=== PATIENT | female | born 1940 | race Caucasian/White ===

== ENCOUNTER 2023-04-12 14:13 | Emergency (ER) | payer MEDICARE, OTHER ==
[~2023-04-12] VITALS: Ht 170.2 cm; Wt 71.2 kg
[~2023-04-12 14:13] MED LIST: ASPI-920 PO; CELE-193 PO; CITA20TA28 PO; CLOP75TA34 PO; CYCL15CA PO; LOP25T PO; OXYC-658 PO; RANI300T7 PO; ROSU40TA PO
[2023-04-12 14:24] VITALS: BP 122/74; PULSE 63; RESP 18; TEMP 98.3; O2SAT 97
[2023-04-12 14:28] LABS: BASOPHILS # (AUTO) 0.1 X10'3 (0-0.2); BASOPHILS % (AUTO) 1.5 % (0-1); EOSINOPHILS # (AUTO) 0.2 X10'3 (0-0.9); EOSINOPHILS % (AUTO) 3.1 % (0-6); HEMATOCRIT 38.9 % (35.0-45.0); HEMOGLOBIN 12.8 g/dl (12.0-16.0); LYMPHOCYTES # (AUTO) 1.7 X10'3 (1.1-4.8); LYMPHOCYTES % (AUTO) 32.4 % (21-51); MEAN CORPUSCULAR HEMOGLOBIN 28.7 PG (27.0-31.0); MEAN CORPUSCULAR VOLUME 87.1 FL (78-98); MEAN PLATELET VOLUME 7.5 FL (7.4-10.4); MONOCYTES # (AUTO) 0.5 X10'3 (0-0.9); MONOCYTES % (AUTO) 9.6 % (2-12); NEUTROPHILS # (AUTO) 2.8 X10'3 (1.8-7.7); NEUTROPHILS % (AUTO) 53.4 % (42-75); PLATELET COUNT 181 X10'3 (140-440); RED BLOOD COUNT 4.46 X10'6 (4.20-5.60); RED CELL DISTRIBUTION WIDTH 16.1 % (11.5-14.5); WHITE BLOOD COUNT 5.3 X10'3 (4.5-11.0)
[2023-04-12 14:49] LABS: ALANINE AMINOTRANSFERASE 26 U/L (12-78); ALBUMIN 3.8 G/DL (3.4-5.0); ALBUMIN/GLOBULIN RATIO 1.2 (1.1-1.5); ALKALINE PHOSPHATASE 71 IU/L (46-116); ANION GAP 11 (8-16); ASPARTATE AMINO TRANSFERASE 21 U/L (10-37); BILIRUBIN,TOTAL 0.4 MG/DL (0.1-1.0); BLOOD UREA NITROGEN 24 MG/DL (7-18); BUN/CREATININE RATIO 22.2 (10.0-20.0); CALCIUM 9.3 MG/DL (8.5-10.1); CHLORIDE 105 MMOL/L (99-107); CREATININE 1.08 MG/DL (0.40-0.90); GLUCOSE 109 MG/DL (70-104); POTASSIUM 4.2 MMOL/L (3.5-5.1); SODIUM 138 MMOL/L (135-145); TOTAL PROTEIN 6.9 G/DL (6.4-8.2); eGFR 48 ML/MIN
[2023-04-12 14:59] LABS: CLARITY,URINE CLOUDY (Clear); COLOR,URINE YELLOW (Yellow); GLUCOSE, URINE NEGATIVE (Neg); KETONES,URINE NEGATIVE (Neg); LEUKOCYTE ESTERASE ,URINE SMALL (Neg); NITRITES, URINE POSITIVE (Neg); OCCULT BLOOD,URINE NEGATIVE (Neg); PH,URINE 5.5 (4.8-8.0); PROTEIN,URINE NEGATIVE (Neg); UROBILINOGEN,URINE 0.2 E.U/dL (0.2-1.0)
[2023-04-12 15:05] LABS: UA COLLECTION TYPE CLN CATCH MIDSTREAM
[2023-04-12 15:06] LABS: BACTERIA,URINE 3+ /HPF (Neg); SQUAMOUS EPITHELIAL CELL,UR MANY /LPF (FEW)
[2023-04-12 15:07] LABS: RBC,URINE 0-2 /HPF (0-2); WBC CLUMPS,URINE MANY /HPF (NEGATIVE); WBC,URINE 50-100 /HPF (0-4)
--- NOTE | 2023-04-12 15:08 | NUR ---
U/A REJECTED FOR CULTURE
== END 2023-04-12 21:39 | disposition left against medical advice (07) ==
LOC: ER 14:14
DX: R42 Dizziness and giddiness (principal); Z53.21 Procedure and treatment not carried out due to patient leaving prior to being seen by health care provider
CPT/HCPCS: 36415; 71045; 80053; 81001; 83880; 84484; 85025; 93005; 99281

== ENCOUNTER 2025-04-17 06:42 | Day surgery (SDC) | payer MEDICARE, OTHER ==
[2025-04-16 14:16] LABS: MEAN PLATELET VOLUME 7.8 FL (7.4-10.4); RED CELL DISTRIBUTION WIDTH 20.2 % (11.5-14.5)
[2025-04-16 14:25] LABS: CREATININE 1.39 MG/DL (0.40-0.90); TOTAL CARBON DIOXIDE 28.1 MMOL/L (24-32); eGFR 36 ML/MIN
[2025-04-16 14:30] LABS: INR 1.1 INR
[2025-04-16 14:36] LABS: PLATELET ESTIMATE NORMAL
[2025-04-16 14:37] LABS: ELLIPTOCYTES FEW
[~2025-04-17] VITALS: Ht 170.2 cm; Wt 72.6 kg
[~2025-04-17 06:42] MED LIST changes: +AMIO200T76 PO; -ASPI-920 PO; +BUPR2TAB11 SL; +CITA-178 PO; -CITA20TA28 PO; -CLOP75TA34 PO; -CYCL15CA PO; +DULO30CA52 PO; +MONT-40 PO; +OXYB5TAB21 PO; -OXYC-658 PO; +PANT40TA54 PO; +PRIM50TA5 PO; -RANI300T7 PO; +RIVA20TA PO
[2025-04-17] MEDS ORDERED: atropine 0.1mg/ml 10ml syringe IV ONE (07:10)
[2025-04-17] MEDS ORDERED: amiodarone 150mg/dext, iso-os 100 ML IV ONE (07:10)
[2025-04-17] MEDS ORDERED: normal saline 1000ml 1,000 ML IV SCH (07:10)
[2025-04-17] MEDS ORDERED: MIDAZolam 1mg/ml 10ml vial IV ONE (07:10)
[2025-04-17] MEDS ORDERED: morphine 10mg/ml inj. IV ONE (07:10)
--- NOTE | 2025-04-17 07:11 | ELECTROCARDIOGRAPH REPORT ---
[facility] Test Date: 2025-04-17 Test Time: 07:10:30 Pat Name: BRIAN LUGO Department: [facility] Patient ID: [facility]-[id number] Room: Gender: F Clinical Laboratory Aide: : 1940 Requested By: ALISSA NORTON Order Number: [id number] Reading MD: Dr. MIKI Norton Measurements Intervals [place] Rate: 62 P: 0 [place]: 0 QRS: 28 QRSD: 100 T: 4 QT: 455 QTc: 462 Interpretive Statements AtrialFlutter Electronically Signed On 04-20-2025 20:17:[address] MIKI Norton Please click the below link to view image of tracing.
[2025-04-17 07:27] VITALS: BP 141/70; PULSE 60; RESP 16; TEMP 98; O2SAT 97
[2025-04-17] MEDS ORDERED: PUMP300C PO (08:09)
[2025-04-17] MEDS ORDERED: DULO60CA65 PO (08:09)
[2025-04-17 08:15] VITALS: RESP 16; O2SAT 97
[2025-04-17] MEDS ORDERED: amiodarone 50MG/ML inj IV ONE (09:15)
[2025-04-17] MEDS ORDERED: atropine 0.1mg/ml 10ml syringe ONE (09:16)
[2025-04-17] MEDS ORDERED: midazolam 1 mg/ML 2ml injection ONE (09:16)
[2025-04-17] MEDS ORDERED: fentaNYL/PF 50MCG/1 ML 2ML syringe ONE (09:16)
[2025-04-17 10:04] VITALS: BP 115/78; PULSE 57; RESP 16; O2SAT 93
--- NOTE | 2025-04-17 10:11 | ELECTROCARDIOGRAPH REPORT ---
[facility] Test Date: 2025-04-17 Test Time: 10:10:05 Pat Name: BRIAN LUGO Department: [facility] Patient ID: [facility]-[id number] Room: Gender: F Field Technician: NAYANA : 1940 Requested By: ALISSA NORTON Order Number: [id number] Reading MD: Dr. MIKI Norton Measurements Intervals [place] Rate: 57 P: 0 [place]: 0 QRS: 79 QRSD: 101 T: 29 QT: 463 QTc: 451 Interpretive Statements Junctional rhythm Anteroseptal infarct, old Electronically Signed On 04-17-2025 17:33:[address] MIKI Norton Please click the below link to view image of tracing.
[2025-04-17 10:17] VITALS: BP 114/64; PULSE 53; RESP 16; O2SAT 94
[2025-04-17 10:30] VITALS: BP 121/68; PULSE 54; RESP 16; O2SAT 92
--- NOTE | 2025-04-17 10:53 | CARDIOLOGY REPORT ---
DATE OF SERVICE: 04/17/2025 DICTATING PHYSICIAN: MIKI Vernon MD [facility] [facility] PRIMARY PHYSICIAN: Justino Medel MD CARDIOLOGY: MIKI Vernon MD INDICATION: An 85-year-old postmenopausal female with history of hypertension, hyperlipidemia, CAD, and history of coronary artery stenting with atrial flutter. AFib since 07/30 hospitalization at [facility] for a pubic fracture. The patient subsequently has been treated with amiodarone and Xarelto. After discussing risks, benefits, and alternative options, the patient agrees to proceed with cardioversion. Risks, benefits, and alternative options discussed, informed consent obtained. DESCRIPTION OF PROCEDURE: Anterior and posterior patch was used. Using 150 biphasic electrical energy cardioversion done, converted to sinus bradycardia. Required 0.5 mg of atropine with heart rate improved from 30s to 60s; however, she was in normal sinus bradycardia as well as in junctional rhythm. IMPRESSION: An 85-year-old female with persistent atrial flutter, converted to normal sinus rhythm. RECOMMENDATIONS: Continue amiodarone 200 mg p.o. daily and metoprolol 25 mg p.o. b.i.d. Continue to hold metoprolol for heart rate less than 50. Also recommend monitoring if the patient develops continued persistent symptomatic bradycardia. The need for pacemaker was discussed with the patient and her family. MIKI Vernon MD TID: [id number] RECEIPT: [id number] CHERRI/CARLEE/JEFF cc: Justino MD MTDD
== END 2025-04-17 11:05 | disposition home or self-care (01) ==
LOC: SSTAY O 06:42
PROVIDERS: ATTEND Internal Medicine Cardiovascular Disease
DX: I48.92 Unspecified atrial flutter (principal); I25.2 Old myocardial infarction; I10 Essential (primary) hypertension; E78.5 Hyperlipidemia, unspecified; I25.10 Atherosclerotic heart disease of native coronary artery without angina pectoris; I48.91 Unspecified atrial fibrillation; F41.9 Anxiety disorder, unspecified; F32.A Depression, unspecified; Z79.01 Long term (current) use of anticoagulants; Z79.899 Other long term (current) drug therapy; Z90.710 Acquired absence of both cervix and uterus; Z95.5 Presence of coronary angioplasty implant and graft; Z98.51 Tubal ligation status; Z98.890 Other specified postprocedural states
CPT/HCPCS: 36415; 80048; 85025; 85610; 92960; 93005; A4615; J0461; J2250; J3010; J7030; 85008; 99152; J0282

== ENCOUNTER 2025-05-04 15:26 | Outpatient (CLI) | payer MEDICARE, OTHER ==
[~2025-05-04] VITALS: Ht 162.6 cm; Wt 72.1 kg
[~2025-05-04 15:26] MED LIST changes: -DULO30CA52 PO; +DULO60CA65 PO; +PUMP300C PO
[2025-05-04 16:02] LABS: TOTAL HEMOGLOBIN 13.0 G/dl (12.0-16.0)
[2025-05-04] MEDS: albuterol 2.5 MG/3 ML nebule NEB ONE (16:20)
[2025-05-04 17:26] VITALS: PULSE 90; RESP 16; O2SAT 91
--- NOTE | 2025-05-09 16:25 | PROCEDURE NOTE - Respiratory ---
Procedure Note-Respiratory Providers to CC Copies To 1: ALISSA NORTON MD Procedure Name: This is a complete pulmonary function study dated May 04, 2025. Hemoglobin measurement was done as part of the study. Spirometry measurements: Both the forced vital capacity and the FEV1 are in the normal range. The FEV1 ratio is normal. The flow rates are excellent. Bronchodilator was not administered as part of this examination. Lung volume measurements: All of the major lung volume determinations are normal. Lung diffusion measurement: The DLCO measurement is in the lower range of normal. The KVO measurement is in the lower range of normal. The alveolar volume is slightly reduced. It is noted that the hemoglobin measurement is normal. Airway resistance measurement: The airway resistance shows no elevation. Conclusion: Normal pulmonary function study. We have no previous studies for comparison. If this patient continues to use amiodarone, it is recommended that pulmonary function testing be repeated in approximately one year. CHAITANYA AMBROSIO MD May 09, 2025 16:25
== END 2025-05-04 23:59 | disposition home or self-care (01) ==
LOC: RT 15:26
PROVIDERS: ATTEND Internal Medicine Cardiovascular Disease
DX: R06.02 Shortness of breath (principal); Z79.2 Long term (current) use of antibiotics
CPT/HCPCS: 85018; 94010; 94727; 94729; 94760

== ENCOUNTER 2025-06-06 11:19 | Outpatient (CLI) | payer MEDICARE, OTHER ==
--- NOTE | 2025-06-06 12:28 | RADIOLOGY REPORT ---
CLINICAL INDICATION: RIGHT FOOT PAIN TECHNIQUE: 3 radiographic views of the right foot were obtained. Comparison: None FINDINGS/IMPRESSION: There is no evidence of acute fracture or dislocation. 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 Small plantar calcaneal enthesophyte.
== END 2025-06-06 23:59 | disposition home or self-care (01) ==
LOC: RAD 11:19
PROVIDERS: ATTEND Internal Medicine Cardiovascular Disease
DX: M19.071 Primary osteoarthritis, right ankle and foot (principal); M79.671 Pain in right foot; M77.31 Calcaneal spur, right foot
CPT/HCPCS: 73630

== ENCOUNTER 2025-08-09 05:42 | Day surgery (SDC) | payer MEDICARE, OTHER ==
[2025-08-08 13:29] LABS: MEAN PLATELET VOLUME 8.4 FL (7.4-10.4); RED CELL DISTRIBUTION WIDTH 19.1 % (11.5-14.5)
[2025-08-08 13:52] LABS: INR 1.4 INR
[2025-08-08 14:01] LABS: CREATININE 1.12 MG/DL (0.40-0.90); TOTAL CARBON DIOXIDE 25.7 MMOL/L (24-32); eGFR 46 ML/MIN
[2025-08-08 14:52] LABS: PLATELET ESTIMATE NORMAL
[~2025-08-09] VITALS: Ht 170.2 cm; Wt 69.7 kg
[2025-08-09] VITALS (9 sets, daily range): BP systolic 119–135; BP diastolic 67–95; PULSE 63–73; RESP 12–23; TEMP 98.3; O2SAT 93–95
[2025-08-09] MEDS ORDERED: atropine 0.1mg/ml 10ml syringe IV ONE (06:30)
[2025-08-09] MEDS ORDERED: normal saline 1000ml 1,000 ML IV SCH (06:30)
[2025-08-09] MEDS ORDERED: morphine 10mg/ml inj. IV ONE (06:30)
[2025-08-09] MEDS ORDERED: amiodarone 150mg/dext, iso-os 100 ML IV ONE (06:30)
[2025-08-09] MEDS ORDERED: MIDAZolam 1mg/ml 10ml vial IV ONE (06:30)
--- NOTE | 2025-08-09 06:31 | ELECTROCARDIOGRAPH REPORT ---
[facility] Test Date: 2025-08-09 Test Time: 06:30:12 Pat Name: BRIAN LUGO Department: [facility] Patient ID: [facility]-[id number] Room: Gender: F Middle School Sports Coach: KRISTIAN : 1940 Requested By: ALISSA NORTON Order Number: [id number] Reading MD: Dr. MIKI Norton Measurements Intervals [place] Rate: 62 P: 0 [place]: 0 QRS: 84 QRSD: 109 T: -6 QT: 477 QTc: 485 Interpretive Statements Atrial flutter Borderline right axis deviation Electronically Signed On 08-09-2025 16:52:[address] MIKI Norton Please click the below link to view image of tracing.
[2025-08-09] MEDS ORDERED: midazolam 1 mg/ML 2ml injection ONE ×2 (07:43→09:14)
[2025-08-09] MEDS ORDERED: atropine 0.1mg/ml 10ml syringe ONE (07:43)
[2025-08-09] MEDS ORDERED: fentaNYL/PF 50MCG/1 ML 2ML syringe ONE (07:43)
[2025-08-09] MEDS ORDERED: amiodarone 50MG/ML inj IV ONE (08:53)
--- NOTE | 2025-08-09 10:20 | CARDIOLOGY REPORT ---
DATE OF SERVICE: 08/09/2025 DICTATING PHYSICIAN: MIKI Vernon MD [facility] [facility] REPORT PRIMARY PHYSICIAN: Dr. Justino Medel. CLAIMS ATTORNEY: MIKI Vernon MD INDICATION: The patient is an 85-year-old postmenopausal female with a history of hypertension, hyperlipidemia, atrial fibrillation, shortness of breath, and history of CVA. The patient was detected to be in AFib during her hospitalization at [facility] back in 07/2024 when she had a fall and then she was started on Eliquis and metoprolol at that time, when she came to our office on 03/30/2025, after discussing rhythm control and rate control, the patient wanted to try rhythm control because of her symptoms. Risks, benefits, alternative options discussed. Informed consent obtained. The patient had an electrical cardioversion successfully on 04/30/2025. It again recurred. Again, she was brought back on amiodarone. DESCRIPTION OF PROCEDURE: Using anterior and posterior patches, 200 joules of electrical cardioversion x 2 did not work and then 3rd attempt with IV amiodarone did not help and 4th attempt with 360 joules did not help. At that time, it is decided to give up further any attempts and accept rate control and anticoagulation and amiodarone was discontinued. IMPRESSION: An 85-year-old female with paroxysmal atrial flutter/fibrillation, which had become persistent, underwent electrical cardioversion, could not be converted back to sinus rhythm. In view of her age and comorbidities, we decided to after discussing rate control versus ablation options, the patient's grand daughter and family prefers to proceed with rate control and anticoagulation at this time and hence recommend discontinuing amiodarone.. MIKI Vernon MD TID: [id number] RECEIPT: [id number] BC/M P cc: Justino Medel MD [facility]
--- NOTE | 2025-08-09 10:26 | ELECTROCARDIOGRAPH REPORT ---
[facility] Test Date: 2025-08-09 Test Time: 09:25:21 Pat Name: BRIAN LUGO Department: [facility]ORT STAY 1ST FLOOR Room: Gender: F Group Fitness Assistant Department Head: : 1940 Requested By: ALISSA NORTON Order Number: [id number] Reading MD: Dr. MIKI Norton Measurements Intervals [place] Rate: 59 P: 0 [place]: 0 QRS: 64 QRSD: 114 T: 0 QT: 461 QTc: 457 Interpretive Statements Atrial flutter Borderline intraventricular conduction delay Low voltage, extremity leads Electronically Signed On 08-09-2025 16:52:[address] MIKI Norton Please click the below link to view image of tracing.
--- NOTE | 2025-08-09 12:16 | ELECTROCARDIOGRAPH REPORT ---
[facility] Test Date: 2025-08-09 Test Time: 10:18:22 Pat Name: BRIAN LUGO Department: [facility] Patient ID: [facility]-[id number] Room: Gender: F Database Management System Specialist: KRISTIAN : 1940 Requested By: ALISSA NORTON Order Number: [id number] Reading MD: Dr. MIKI Norton Measurements Intervals [place] Rate: 60 P: 0 [place]: 0 QRS: 97 QRSD: 115 T: -10 QT: 477 QTc: 477 Interpretive Statements Atrial flutter Nonspecific intraventricular conduction delay Borderline T abnormalities, diffuse leads Electronically Signed On 08-09-2025 16:53:[address] MIKI Norton Please click the below link to view image of tracing.
== END 2025-08-09 12:31 ==
LOC: SSTAY O 05:42
PROVIDERS: ATTEND Internal Medicine Cardiovascular Disease
DX: I48.91 Unspecified atrial fibrillation (principal); I48.92 Unspecified atrial flutter; I25.10 Atherosclerotic heart disease of native coronary artery without angina pectoris; I10 Essential (primary) hypertension; E78.5 Hyperlipidemia, unspecified; F41.9 Anxiety disorder, unspecified; F32.A Depression, unspecified; Z86.73 Personal history of transient ischemic attack (TIA), and cerebral infarction without residual deficits; Z79.01 Long term (current) use of anticoagulants; Z79.899 Other long term (current) drug therapy; Z90.710 Acquired absence of both cervix and uterus; Z95.5 Presence of coronary angioplasty implant and graft; Z98.51 Tubal ligation status; Z98.890 Other specified postprocedural states
CPT/HCPCS: 36415; 80048; 85025; 85610; 92960; 93005; J0282; J2250; J3010; J7030; 85008; 99152; 99153; J0461